=== PATIENT | female | born 1975 | race Caucasian/White ===

== ENCOUNTER 2022-08-12 19:52 | Emergency (ER) | payer OTHER ==
[2022-08-12] MEDS ORDERED: Fluorescein 1 MG Ophth Strip EYELF STA (20:22)
[2022-08-12] MEDS ORDERED: Proparacaine 0.5% Ophth Soln 15 ML Bottle EYELF STA (20:22)
[2022-08-12] MEDS ORDERED: Erythromycin Base 0.5% Ophth Oint 1 GM Tube EYELF STA (20:44)
[2022-08-12] MEDS ORDERED: Sodium Chloride 0.9% 1,000 ML IV ONE (20:44)
== END 2022-08-12 21:15 | disposition home or self-care (01) ==
LOC: JD.ED 19:52
DX: H16.002 Unspecified corneal ulcer, left eye (principal); E66.9 Obesity, unspecified; Z68.32 Body mass index [BMI] 32.0-32.9, adult
CPT/HCPCS: 99282; 99283; A9270-GY; J7030